=== PATIENT | female | born 1980 | race Caucasian/White ===

== ENCOUNTER → 2017-02-09 | Outpatient (CLI) | payer OTHER ==
[~2017-02-09] MED LIST: LIDOCAINE 1% 300 MG/30 ML SDV ONE
== END ==
LOC: FIMAGING 11:35
PROVIDERS: ATTEND Obstetrics & Gynecology
PROC: 0U900ZZ Drainage of Right Ovary, Open Approach (ICD-10-PCS; principal; 2017-02-09)
DX: O34.82 Maternal care for other abnormalities of pelvic organs, second trimester (principal); Z3A.21 21 weeks gestation of pregnancy